=== PATIENT | male | born 2000 ===

== ENCOUNTER 2021-09-24 10:05 | Emergency (ER) | payer SELFPAY ==
[2021-09-24 10:10] VITALS: BP 136/87
[2021-09-24] MEDS ORDERED: LIDOCAINE (1%) 10 MG/1 ML VIAL 20 ML MDV INFILTRATI ONE (12:53)
[2021-09-24] MEDS ORDERED: TETANUS,DIPH,PERTUSS(ACELL) VACCINE 0.5 ML SYRINGE IM ONE (12:53)
[2021-09-24] MEDS ORDERED: IBUPROFEN 600 MG TAB PO ONE (12:53)
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
== END 2021-09-24 14:23 | disposition left against medical advice (07) ==
LOC: ED 10:05
DX: S61.210A Laceration without foreign body of right index finger without damage to nail, initial encounter (principal); S80.02XA Contusion of left knee, initial encounter; S20.219A Contusion of unspecified front wall of thorax, initial encounter; S00.531A Contusion of lip, initial encounter; V49.88XA Car occupant (driver) (passenger) injured in other specified transport accidents, initial encounter; Y93.89 Activity, other specified; Y92.89 Other specified places as the place of occurrence of the external cause; Y99.8 Other external cause status
CPT/HCPCS: 70450; 71046; 73140; 73562; 90471; 90715; 99284; J3490